=== PATIENT | female | born 1985 | race Caucasian/White ===

== ENCOUNTER → 2016-12-17 | Outpatient (CLI) | payer OTHER ==
--- NOTE | 2016-12-17 09:50 | KCIC ---
PROCEDURE Left breast diagnostic ultrasound HISTORY Left breast pain TECHNIQUE Sonographic examination of the 9:00 to 12:00 left breast was performed and multiple static images were obtained FINDINGS There is a dense breast parenchyma. There is no focal abnormality. IMPRESSION Negative examination. A negative imaging study should not delay further workup of a clinically suspicious finding. If the patient continues to have symptoms a bilateral mammogram could be obtained. These results were given to the patient in person. ACR BI-RADS 1: Negative. Electronically signed by: Delio Rodriguez MD (Dec 17, 2016 09:48:02)
== END | disposition home or self-care (01) ==
LOC: KCIC MAMMO 08:50
PROVIDERS: ATTEND Family Medicine
DX: N64.4 Mastodynia (principal)
CPT/HCPCS: 76641